=== PATIENT | male | born 1980 ===

== ENCOUNTER 2016-04-27 08:14 | Emergency (ER) | payer SELFPAY ==
--- NOTE | 2016-04-27 08:35 | UC ---
Dental HPI - HPI Summary HPI Summary: 2 WEEKS OF WORSENING LOWER LEFT TOOTH PAIN. HAS DENTAL APPT SET UP 05/03/16. GOING HOME TO [facility] IN 3 MONTHS. NO FEVER. HAS NEVER HAD ANY DENTAL CARE. - History of Current Complaint Chief Complaint: UCDentalProblem Stated Complaint: DENTAL PAIN Time Seen by Provider: 04/27/16 08:34 Hx Obtained From: Patient Onset/Duration: Gradual Onset, Lasting Weeks, Still Present Severity: Severe Pain Intensity: 10 Pain Scale Used: 0-10 Numeric Aggravating: Heat, Cold, Chewing Alleviating: Nothing - Allergies/Home Medications Allergies/Adverse Reactions: Allergies Allergy/AdvReac Type Severity Reaction Status Date / Time No Known Allergies Allergy Verified 04/27/16 08:24 PMH/Surg Hx/FS Hx/Imm Hx Previously Healthy: Yes - Surgical History Surgical History: None - Family History Known Family History: Negative: Blood Disorder - Social History Alcohol Use: Rare Substance Use Type: None Smoking Status (MU): Never Smoked Tobacco Review of Systems Constitutional: Negative ENT: Dental Pain Respiratory: Negative Cardiovascular: Negative Gastrointestinal: Negative All Other Systems Reviewed And Are Negative: Yes Physical Exam Triage Information Reviewed: Yes Appearance: Well-Appearing, No Pain Distress, Well-Nourished Vital Signs: Initial Vital Signs Temp 97.9 F 04/27/16 08:18 Pulse 88 04/27/16 08:18 Resp 20 04/27/16 08:18 BP 120/72 04/27/16 08:18 Pulse Ox 100 04/27/16 08:18 Vital Signs Reviewed: Yes Eyes: Positive: Conjunctiva Clear ENT: Positive: Hearing grossly normal Dental: Positive: Dental Fracture @ - LEFT LOWER 1ST MOLAR Neck: Positive: Supple, Nontender, No Lymphadenopathy Respiratory: Positive: No respiratory distress, No accessory muscle use Cardiovascular: Positive: Pulses Normal Abdomen Description: Positive: Soft Musculoskeletal: Positive: No Edema Neurological: Positive: Alert Psychological: Positive: Normal Response To Family, Age Appropriate Behavior Skin: Negative: rashes Dental Complaint Course/Dx - Differential Dx/Diagnosis Provider Diagnoses: DENTAL CARIES Discharge - Discharge Plan Condition: Stable Disposition: HOME Prescriptions: Acetaminop/Codeine 30 MG TAB* [Tylenol/Codeine 30 MG TAB*] 1 - 2 tab PO Q6H PRN #30 tab MDD 8 PRN Reason: Pain Amoxicillin CAP* 500 mg PO Q12H #14 cap Chlorhexidine MW 0.12% 473ML* [Peridex Mouth Wash 0.12%*] 15 ml SWISH SPIT BID # 1 bottle Patient Education Materials: Dental Caries (ED), Toothache (ED) Referrals: No Primary Care Phys,NOPCP [Primary Care Provider] - Additional Instructions: KEEP YOUR DENTIST APPT NEXT SATURDAY.
== END 2016-04-27 09:05 | disposition home or self-care (01) ==
LOC: UCEAST 08:14
DX: K02.9 Dental caries, unspecified (principal)
CPT/HCPCS: 99202; G0463

== ENCOUNTER 2018-04-21 11:48 | Emergency (ER) | payer BC, OTHER ==
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
[2018-04-21 13:38] VITALS: BP 135/79
== END 2018-04-21 13:38 | disposition home or self-care (01) ==
LOC: ED 11:48
DX: S16.1XXA Strain of muscle, fascia and tendon at neck level, initial encounter (principal); M54.2 Cervicalgia; M54.9 Dorsalgia, unspecified; V43.92XA Unspecified car occupant injured in collision with other type car in traffic accident, initial encounter; Y92.9 Unspecified place or not applicable
CPT/HCPCS: 72050; 99285